=== PATIENT | female | born 1995 | race Caucasian/White ===

== ENCOUNTER 2019-05-28 16:20 | Emergency (ER) | payer BC, OTHER ==
[~2019-05-28] VITALS: Ht 172.7 cm; Wt 55.2 kg
[2019-05-28] MEDS ORDERED: SERT-138 (16:29)
[2019-05-28] MEDS ORDERED: LAMO100T (16:29)
[2019-05-28] MEDS ORDERED: DEPO150I12 IM (16:31)
--- NOTE | 2019-05-28 16:54 | REP ---
Chest x-ray: Two views. History: Shortness of breath. Productive cough . Comparison study: No comparison study . Findings: The lungs are well inflated and free of infiltrate. The pleural angles are sharp. The heart size is normal. Pulmonary vasculature is not increased. No significant bony abnormality is seen. Impression: Negative chest x-ray. Electronically Signed by Conrad Dias MD 05/28/2019 04:46 P
[2019-05-28] MEDS ORDERED: IPRATROPIUM 0.5MG/ALBUTEROL 2.5MG INH SOL UD 3ML (DUONEB)(J7620) NEB ONE (18:15)
[2019-05-28] MEDS ORDERED: MUCI600T31 PO ×2 (19:18→19:40)
[2019-05-28] MEDS ORDERED: VENTAER INH ×2 (19:18→19:40)
[2019-05-28] MEDS ORDERED: ALLE10TA62 PO (19:20)
[2019-05-28 19:31] VITALS: BP 116/71
[2019-05-28] MEDS ORDERED: CETI10CA2 PO (19:40)
== END 2019-05-28 20:02 | disposition home or self-care (01) ==
LOC: M ED 16:20
DX: J20.9 Acute bronchitis, unspecified (principal); R06.02 Shortness of breath; F32.9 Major depressive disorder, single episode, unspecified; Z79.899 Other long term (current) drug therapy